=== PATIENT | male | born 1955 | race Caucasian/White ===

== ENCOUNTER 2018-01-04 13:19 | Emergency (ER) | payer MEDICAID ==
[~2018-01-04] VITALS: Ht 190.5 cm; Wt 86.0 kg
[2018-01-04 15:54] VITALS: BP 145/89
== END 2018-01-04 15:53 | disposition left against medical advice (07) ==
LOC: EMS 13:20
DX: L02.415 Cutaneous abscess of right lower limb (principal); F14.90 Cocaine use, unspecified, uncomplicated; F12.90 Cannabis use, unspecified, uncomplicated; F15.90 Other stimulant use, unspecified, uncomplicated; F11.90 Opioid use, unspecified, uncomplicated
CPT/HCPCS: 99283